=== PATIENT | female | born 1965 | race Caucasian/White ===

== ENCOUNTER 2024-09-18 12:15 | Outpatient (CLI) | payer BC, SELFPAY | END 2024-09-18 12:16 | disposition home or self-care (01) | LOC: NFLDREF 09-24 12:26 | PROVIDERS: PCP Family Medicine; Referring Provider Family Medicine; Visit Provider Physician Assistant Surgical | DX: M54.9 Dorsalgia, unspecified (principal); R10.9 Unspecified abdominal pain | CPT/HCPCS: 87086 ==